=== PATIENT | female | born 1950 | race Caucasian/White ===

== ENCOUNTER 2018-03-19 18:56 | Emergency (ER) | payer BC ==
[2018-03-19 19:00] VITALS: BP 155/69; PULSE 79; TEMP 98.2; BMI 22.4
--- NOTE | 2018-03-19 19:35 | PDOC ---
History of Present Illness - General Chief Complaint: Injury Stated Complaint: FALL/INJURY Time Seen by Provider: 03/19/18 19:16 History Source: Patient - History of Present Illness Occurred: reports: just prior to arrival Method of Injury: Yes: fall Past History - Past Medical History Allergies/Adverse Reactions: Allergies Allergy/AdvReac Type Severity Reaction Status Date / Time No Known Allergies Allergy Verified 03/19/18 19:51 Home Medications: Ambulatory Orders NK [No Known Home Medication] 03/19/18 COPD: No - Immunization History Immunization Up to Date: Yes - Suicide/Smoking/Psychosocial Hx Smoking History: Never smoked Information on smoking cessation initiated: No Hx Alcohol Use: No Drug/Substance Use Hx: No Review of Systems - Review of Systems Respiratory: No: Shortness of Breath Cardiac (ROS): No: Chest Pain ABD/GI: No: Nausea, Vomiting Neurological: No: Headache, Dizziness *Physical Exam - Vital Signs Last Vital Signs Temp Pulse Resp BP Pulse Ox 98.2 F 79 18 155/69 98 03/19/18 18:57 03/19/18 18:57 03/19/18 18:57 03/19/18 18:57 03/19/18 18:57 - Physical Exam General Appearance: Yes: Appropriately Dressed, Mild Distress HEENT: positive: Normal Voice, Other (significant swelling w/ ecchymosis to L periorbital area, unable to open eyes in ED, when eye forced open, cojunctiva clear w/ intact EOM, able to see fingers/colors) Neck: positive: Supple Respiratory/Chest: positive: Lungs Clear, Normal Breath Sounds. negative: Respiratory Distress Cardiovascular: positive: Regular Rate, S1, S2 Extremity: positive: Other (abrasions to knees b/l, no joint swelling or deformity, R wrist w/ minimal pain w/ AJ, no swelling, deformity or ttp to snuffbox) Integumentary: positive: Dry, Warm Neurologic: positive: Fully Oriented, Alert, Normal Mood/Affect, Motor Strength 5/5 Moderate Sedation - Procedure Monitoring Vital Signs: Procedure Monitoring Vital Signs Temperature 98.2 F 03/19/18 18:57 Pulse Rate 79 03/19/18 18:57 Respiratory Rate 18 03/19/18 18:57 Blood Pressure 155/69 03/19/18 18:57 O2 Sat by Pulse Oximetry (%) 98 03/19/18 18:57 ED Treatment Course - RADIOLOGY Radiology Studies Ordered: Category Date Time Status FACIAL BONES CT W/O CONTRAST [CT] Stat CT Scan 03/19/18 19:[address] WITHOUT CONTRAST [CT] Stat CT Scan 03/19/18 19:20 Ordered WRIST- RIGHT [RAD] Stat Radiology 03/19/18 19:20 Ordered Medical Decision Making - Medical Decision Making 03/19/18 19:28 67-year-old female, history of RA, here with multiple injuries s/p fall tonight. Patient states while walking outdoors, she tripped over uneven pavement and fell, striking her face. Denies LOC and no headache, n/v currently. Not on blood thinners. Patient also complaining of bruising to bilateral knees and right wrist pain. No CP or dizziness prior to fall See exam Facial injury s/p mechanical fall No LOC Not on blood thinners Stable w/ sig L periorbial swelling/ecchymosis, no e/o entrapment at this time -ice/pain control -CT facial bones r/o L orbital fx -CTH -R wrist film -reassess 03/19/18 20:21 CT head and facial bones read as L orbital and L frontal bone hematoma, otherwise no head bleed, skull or facial bones fracture with intact globes bilaterally. X-Xray wrist negative. DC with strict instructions to apply ice to facial swelling and to take tylenol as needed for pain. Reasons to return to ER discussed with patient *DC/Admit/Observation/Transfer Diagnosis at time of Disposition: Fall Qualifiers: Encounter type: initial encounter Qualified Code(s): W19.XXXA - Unspecified fall, initial encounter Facial hematoma Qualifiers: Encounter type: initial encounter Qualified Code(s): S00.83XA - Contusion of other part of head, initial encounter - Discharge Dispostion Disposition: HOME Condition at time of disposition: Good - Referrals Referrals: ON STAFF,NOT [Primary Care Provider] - - Patient Instructions Printed Discharge Instructions: DI for Hematoma (Bruise) Additional Instructions: CT of your face shows some swelling over your left eye, otherwise no fracture and no head bleed. X-ray of your wrist was negative for fracture. Please apply ice frequently throughout day to reduce left eye swelling. Take Tylenol as needed for pain. If symptoms worsen, return to ER immediately, otherwise follow-up with your doctor - Post Discharge Activity
[2018-03-19] MEDS ORDERED: ACETAMINOPHEN 325 MG TABLET (FP) PO ONE (19:36)
== END 2018-03-19 20:33 | disposition home or self-care (01) ==
LOC: JERFT 18:56
DX: S05.12XA Contusion of eyeball and orbital tissues, left eye, initial encounter (principal); W18.39XA Other fall on same level, initial encounter; Y93.01 Activity, walking, marching and hiking; Y92.480 Sidewalk as the place of occurrence of the external cause; Y99.8 Other external cause status
CPT/HCPCS: 70450-TC; 70486-TC; 73110-TC-RT-FY; 99281-25